=== PATIENT | female | born 1935 | race Caucasian/White ===

== ENCOUNTER 2016-12-22 01:40 | Emergency (ER) | payer OTHER ==
[~2016-12-22] VITALS: Ht 160 cm; Wt 90.7 kg
[~2016-12-22 01:40] MED LIST: DOC100C PO; FERR325T50 PO; HYDR-4663 PO; METO-158 PO; RANI150C11 PO; WARF5TAB71 PO
[2016-12-22 03:43] LABS: Basophils # (auto) 0.1 uL; Basophils % (auto) 0.5 % (0.0-2.0); CONDITION Y; Eosinophils # (auto) 0 uL; Hematocrit 33.7 % (36.0-46.0); Hemoglobin 11.2 g/dL (12.2-16.2); Lymphocytes # (auto) 0.5 uL; Lymphocytes % (auto) 4.4 % (10.0-50.0); Mean Corpuscular Hemoglobin 29.5 pg (28.0-32.0); Mean Corpuscular Hgb Conc. 33.2 g/dL (32.0-36.0); Mean Corpuscular Volume 88.7 fL (80.0-100.0); Mean Platelet Volume 7.2 fL (7.4-10.4); Monocytes # (auto) 1.2 uL; Monocytes % (auto) 10.4 % (0.0-12.0); Neutrophils # (auto) 9.3 uL; Neutrophils % (auto) 84.7 % (37.0-80.0); Platelet Count (auto) 366 10^3/uL (140-450); Red Cell Distribution Width 13.6 % (11.6-16.0)
[2016-12-22 04:13] LABS: Albumin 2.8 g/dL (3.4-5.0); Alkaline Phosphatase 70 U/L (45-117); Anion Gap 7 (5-15); Aspartate Aminotransferase 14 U/L (15-37); Bilirubin, Total 0.5 mg/dL (0.2-1.0); Blood Urea Nitrogen 20 mg/dL (7-18); Carbon Dioxide 28 mmol/L (21-32); Chloride 99 mmol/L (98-107); GFR African American 77 mL/min; GFR Non-African American 64 mL/min; Glucose 118 mg/dL (74-106); Magnesium 2.7 mg/dL (1.6-2.6); Potassium 3.4 mmol/L (3.5-5.1); Sodium 134 mmol/L (136-145); Total Protein 6.7 g/dL (6.4-8.2)
[2016-12-22 04:15] LABS: Urine Bilirubin Negative (Negative); Urine Blood 1+ /uL (Negative); Urine Color Yellow (Yellow); Urine Glucose Normal (Normal); Urine Granular Cast FEW /lpf (0); Urine Hyaline Cast FEW /lpf (0 - 2); Urine Ketone Negative (Negative); Urine Nitrite Negative (Negative); Urine RBC 18 /hpf (0 - 4); Urine Squamous Epithelial Cell FEW /hpf (<5); Urine Urobilinogen Normal (Negative); Urine WBC Clumps PRESENT /hpf (None Seen)
[2016-12-22] MEDS: SODIUM CHLORIDE 0.9% 1,000 ML IV ONE (06:52)
[2016-12-22] MEDS: LEVOFLOXACIN 500MG 100 ML IV ONE (07:58)
[2016-12-22 20:30] VITALS: BP 136/75
== END 2016-12-22 20:52 | disposition home or self-care (01) ==
LOC: ER 01:40 → EDBD 01:40 → ER 20:52
DX: A41.9 Sepsis, unspecified organism (principal); R41.82 Altered mental status, unspecified; E87.6 Hypokalemia; N39.0 Urinary tract infection, site not specified; D64.89 Other specified anemias; I25.810 Atherosclerosis of coronary artery bypass graft(s) without angina pectoris; I11.0 Hypertensive heart disease with heart failure; I50.9 Heart failure, unspecified; J44.9 Chronic obstructive pulmonary disease, unspecified; K21.9 Gastro-esophageal reflux disease without esophagitis; E78.5 Hyperlipidemia, unspecified; I25.2 Old myocardial infarction; Z79.01 Long term (current) use of anticoagulants; Z88.1 Allergy status to other antibiotic agents; Z95.1 Presence of aortocoronary bypass graft; Z95.0 Presence of cardiac pacemaker; Z90.49 Acquired absence of other specified parts of digestive tract; Z79.899 Other long term (current) drug therapy
CPT/HCPCS: 36415; 51702; 70450; 71010; 73502; 80053; 80307; 80320; 81001; 83605; 83735; 84484; 85025; 87040; 93005; 96361; 96365; 99285; J1956; J7030

== ENCOUNTER 2016-12-23 01:17 | Emergency (ER) | payer OTHER ==
[~2016-12-23] VITALS: Ht 165.1 cm; Wt 81.6 kg
[2016-12-23 01:26] VITALS: BP 147/89
== END 2016-12-23 03:00 | disposition left against medical advice (07) ==
LOC: ER 02:26
DX: M79.642 Pain in left hand (principal); Z53.21 Procedure and treatment not carried out due to patient leaving prior to being seen by health care provider

== ENCOUNTER 2016-12-28 06:26 | Emergency (ER) | payer OTHER ==
[~2016-12-28] VITALS: Ht 157.5 cm; Wt 79.4 kg
[2016-12-28] MEDS: KETOROLAC TROMETH 60MG/2ML VIAL IM ONE ×2 (13:30→14:01)
[2016-12-29] MEDS ORDERED: HYDROcodone-ACET 5/325MG TAB PO PRN (13:30)
[2016-12-29] MEDS ORDERED: DOCUSATE SOD 100 MG CAP PO PRN (13:30)
[2016-12-29 17:02] LABS: INR 1.06 (0.9-1.15); Partial Thromboplastin Time 30.3 sec (22.64-33.71); Prothrombin Time 11.6 sec (9.37-12.3)
[2016-12-29 18:34] VITALS: BP 160/96
== END 2016-12-29 19:54 | disposition home or self-care (01) ==
LOC: ER 06:26 → EDBD 06:26 → ER 12-29 19:54
DX: M47.896 Other spondylosis, lumbar region (principal); I25.10 Atherosclerotic heart disease of native coronary artery without angina pectoris; I11.0 Hypertensive heart disease with heart failure; I50.9 Heart failure, unspecified; J44.9 Chronic obstructive pulmonary disease, unspecified; K21.9 Gastro-esophageal reflux disease without esophagitis; E78.5 Hyperlipidemia, unspecified; I25.2 Old myocardial infarction; Z95.1 Presence of aortocoronary bypass graft; Z95.0 Presence of cardiac pacemaker; Z79.01 Long term (current) use of anticoagulants; Z88.1 Allergy status to other antibiotic agents; Z88.5 Allergy status to narcotic agent; Z88.8 Allergy status to other drugs, medicaments and biological substances
CPT/HCPCS: 36415; 72192; 73560; 73562; 85610; 85730; 96372; 99285; J1885